=== PATIENT | male | born 1980 | race Hispanic/Latino ===

== ENCOUNTER 2018-01-25 18:47 | Emergency (ER) | payer MEDICAID ==
[2018-01-25 19:12] VITALS: BP 135/83
[2018-01-25] MEDS ORDERED: ASPIRIN PO ONE (19:16)
[2018-01-25 19:49] LABS: Basophils # (Auto) 0.1 K/mm3 (0.0-0.1); Basophils % (Auto) 0.4 % (0.0-1.8); Eosinophils # (Auto) 0.3 K/mm3 (0.0-0.4); Eosinophils % (Auto) 1.8 % (0.0-4.3); Hematocrit 41.8 % (35.5-45.6); Hemoglobin 13.8 gm/dl (11.8-15.2); Lymphocytes # (Auto) 2.1 K/mm3 (1.2-5.4); Mean Corpuscular HGB Conc 33 % (32-34); Monocytes # (Auto) 0.9 K/mm3 (0.0-0.8); Monocytes % (Auto) 5.9 % (0.0-7.3); Platelet Count 400 K/mm3 (140-440); Red Blood Count 6.27 M/mm3 (3.65-5.03); Red Cell Distribution Width 16.1 % (13.2-15.2)
[2018-01-25 19:51] LABS: Mean Corpuscular Hemoglobin 22 pg (28-32); Mean Corpuscular Volume 67 fl (84-94)
[2018-01-25] MEDS ORDERED: NACL 0.9% 1000 ML 1,000 ML IV ONE (20:00)
[2018-01-25 20:05] LABS: BUN/Creatinine Ratio 19; Blood Urea Nitrogen 19 mg/dL (9-20); Calcium 9.7 mg/dL (8.4-10.2); Hemolysis Index 5
[2018-01-25] MEDS ORDERED: ZOFRAN IV ONE (20:42)
[2018-01-25] MEDS ORDERED: NORCO 5/325 PO ONE (20:43)
[2018-01-25] MEDS ORDERED: PEPCID IV ONE (20:44)
[2018-01-25 20:52] LABS: Alanine Aminotransferase 28 units/L (7-56); Albumin 4.8 g/dL (3.9-5); Lipase 15 units/L (13-60)
[2018-01-25 20:53] LABS: Bilirubin,Direct < 0.2 mg/dL (0-0.2)
--- NOTE | 2018-01-25 21:48 | Emergency Department Report ---
HPI - General Chief Complaint: Syncope Time Seen by Provider: 01/25/18 20:09 - HPI HPI: The patient is a 37-year-old male with a severe history of diabetes, presents for evaluation of syncope. The patient reports constant and severe lightheadedness proximal one hour prior to arrival while cooking food on a grill outside in the heat. He states that he was very warm, and that his symptoms were exacerbated with position changes. He shares that he was sitting down when his lightheadedness/dizziness worsen, at which time he passed out for a short amount of time. He shares that he lalitha multiple beers today and consumed very little water. The patient denies fever, head injury, headache, neck pain, neck stiffness, vision or hearing changes, smell or taste changes, paresthesias, facial drooping, slurred speech, seizure-like activity, urine or bowel incontinence or retention, or other focal neurological deficit. ED Past Medical Hx - Past Medical History Previous Medical History?: Yes Additional medical history: Back pain - Surgical History Past Surgical History?: No - Social History Smoking Status: Current Every Day Smoker Substance Use Type: Alcohol, Marijuana - Medications Home Medications: Home Medications Medication Instructions Recorded Confirmed Last Taken Type Nystas/Diphen/Xyl Visc/Mylanta 30 ml MM Q4H #1 bottle 01/25/18 Unknown Rx [Magic Mouthwash] Penicillin Vk [Veetids TAB] 250 mg PO QID #20 tablet 01/25/18 Unknown Rx traMADol [Ultram 50 MG tab] 50 mg PO Q6HR PRN #15 tablet 01/25/18 Unknown Rx ED Review of Systems ROS: Stated complaint: SYNCOPY/NAUSEA/VOMITING Other details as noted in HPI Constitutional: Reports lightheadedness denies: fever ENT: denies: throat or neck pain Respiratory: denies: cough, shortness of breath Cardiovascular: denies: chest pain Endocrine: denies unexplained weight loss or gain Gastrointestinal: denies: abdominal pain reports nausea Genitourinary: denies: dysuria Musculoskeletal: denies: leg swelling Skin: denies: rash Neurological: denies: headache Hematological/Lymphatic: denies: easy bleeding or easy bruising Psych: denies sadness or hopelessness Physical Exam - Physical Exam Vital Signs: Vital Signs 01/25/18 18:54 Temperature 98.2 F Pulse Rate 85 Respiratory 18 Rate Blood Pressure 135/83 O2 Sat by Pulse 99 Oximetry Physical Exam: General: well-nourished, well-developed, no acute distress Head: Normocephalic, atraumatic Eyes: normal sclera, no vertical, horizontal, or rotary nystagmus ENT: Mucous membranes are pale and dry Neck: No neck stiffness, no cervical adenopathy Respiratory: Breath sounds equal bilaterally, no wheezing, rales, or rhonchi Cardio: S1 and S2 present, no murmurs, rubs, gallops, capillary refill is delayed Abdomen: Normoactive bowel sounds, soft abdomen, no rigidity, no guarding or rebound tenderness Chest WALL/Back: No tenderness to palpation of the chest wall, no CVA tenderness with percussion Musc: No pitting edema Skin: No rash Neuro: alert oriented x4, normal cognition, speech normal, PERRL, EOM intact, no facial drooping, no uvula or tongue deviation on protrusion, no deficit with rotation of neck or shoulder shrug, no obvious gross motor deficit in the upper or lower extremities with flexion or extension at the shoulder, elbow, wrist, hip, knee, or ankle bilaterally, no obvious gross sensation deficit to crude touch or 2 pt discrimination, 2+ symmetric reflexes on DTR testing, no coordination deficit with [id number] or [id number] testing, Babinski downgoing, romberg negative, patient able to to ambulate without abnormal gait Psych: Normal affect ED Course Vital Signs 01/25/18 18:54 Temperature 98.2 F Pulse Rate 85 Respiratory 18 Rate Blood Pressure 135/83 O2 Sat by Pulse 99 Oximetry ED Medical Decision Making - Lab Data Result diagrams: 01/25/18 19:21 01/25/18 19:21 - Medical Decision Making The patient was seen and examined by myself. The patient is placed on a tractor operator battery and continuous pulse ox. On initial evaluation, the patient was found to be in no distress. Evaluation orders were placed. EKG was negative for arrhythmia or ST elevation or depression suggestive of acute cardiac disease process. The patient is given 1 L normal saline fluid bolus for treatment of dehydration Lab results were grossly unremarkable. The patient was reevaluated and reported that their symptoms were markedly improved. The patient is stable for discharge with outpatient follow-up. The patient is given follow-up and return instructions. The patient expressed understanding and agreed with the plan. The patient is discharged in stable condition. Critical care attestation.: If time is entered above; I have spent that time in minutes in the direct care of this critically ill patient, excluding procedure time. ED Disposition Clinical Impression: Orthostatic syncope, Dehydration, Orthostatic dizziness Disposition: DC-01 TO HOME OR SELFCARE Is pt being admited?: No Does the pt Need Aspirin: No Condition: Stable Instructions: Syncope (ED), Dehydration (ED), Lightheadedness (ED) Referrals: PRIMARY CARE, [Primary Care Provider] - 3-5 Days Time of Disposition: 21:48
== END 2018-01-26 04:00 | disposition home or self-care (01) ==
LOC: ED 18:47
DX: R55 Syncope and collapse (principal); R42 Dizziness and giddiness; E86.0 Dehydration; F17.200 Nicotine dependence, unspecified, uncomplicated; F12.10 Cannabis abuse, uncomplicated
CPT/HCPCS: 36415; 80048; 80074; 82550; 83690; 83880; 84484; 85025; 93005; 93010; 99284; G0480; 80320